=== PATIENT | female | born 1970 | race Two or more races ===

== ENCOUNTER → 2016-12-22 | Outpatient (CLI) | payer OTHER ==
--- NOTE | ~2016-12-22 | US78 ---
[facility] A Service of [facility] & [facility] RADIOLOGY TEXT RESULTS PATIENT: DG MARTINEZ LOCATION: CNIV : 66 UNIT #: [id number] AGE: [address]: AWA TRAN MD SEX: F ORDER DR: [id number] [facility] [address] [place], [place] [address] [id number] O MR#: [id number] Acc #: [id number] NAME: DG MARTINEZ : 1970 SEX: F STUDY DATE/TIME: 12/22/2016 11:50 UNIT: CNIV ROOM: STUDY DESCRIPTION: US Kidney Duplex Complete Attending Physician: Awa Tran M.D. Referring Physician: Awa Tran M.D. Ordering Physician: Awa Tran M.D. Primary Care Physician: Awa Tran M.D. MEDICAL IMAGING REPORT This report is preliminary unless electronic signature is present REVISED REPORT SEE ADDENDUM EXAM Renal artery Doppler ultrasound. Date: 12/22/2016 HISTORY Physician's order states congenital malformation of the kidney. Patient states hypertension for 25 years. 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 COMPARISON Bilateral renal ultrasound 12/22/2016. No prior renal artery Doppler or angiography study for comparison at this institution. FINDINGS Please refer to the bilateral renal ultrasound report from the same day for renal parenchymal findings. Right intrarenal resistive indices vary between 0.55 to 0.65. Right renal vein is patent. Right renal artery peak systolic velocity proximal segment 109 cm/sec, mid segment 95.8 cm/sec, distal segment 96.5 cm/sec. Normal spectral Doppler waveforms are demonstrated. Juxtarenal abdominal aortic peak systolic velocity is 147.1 cm/sec. Left intrarenal resistive indices vary between 0.63 to 0.66. Left renal vein is patent. Left renal artery peak systolic velocity proximal segment 178.1 cm/sec, mid segment 132.8 cm/sec, distal segment 91.5 cm/sec. STS. [facility] A Service of [facility] & [facility] RADIOLOGY TEXT RESULTS PATIENT: DG MARTINEZ LOCATION: PAULY : 66 UNIT #: [id number] AGE: [address]: AWA TRAN MD SEX: F ORDER DR: Normal spectral Doppler waveform is demonstrated. Right renal artery to aortic ratio 0.7. Left renal artery to aortic ratio 1.2. Dictated by... Kimberly Dacosta M.D. THIS IS AN ELECTRONICALLY VERIFIED REPORT Kimberly Dacosta M.D. at 12/25/2016 7:13 AM Ant TD: 12/23/2016 09:27 JOB #: [id number] ADDENDUM IMPRESSION No hemodynamically significant stenosis is seen by sonographic criteria. No sonographic evidence of renal artery stenosis. If more definitive evaluation is desired, dedicated CT angiography of the renal arteries could be performed. Dictated by... Kimberly Dacosta M.D. THIS IS AN ELECTRONICALLY VERIFIED REPORT Kimberly Dacosta M.D. at 12/28/2016 8:33 AM Magi TD: 12/23/2016 09:31 JOB #: [id number] CC: [email or web address] Please Delete MEDICAL IMAGING REPORT Page 1 of 1 COPY
--- NOTE | ~2016-12-22 | US77 ---
[facility] A Service of [facility] & [facility] RADIOLOGY TEXT RESULTS PATIENT: DG MARTINEZ LOCATION: CNIV : 66 UNIT #: [id number] AGE: [address]: AWA TRAN MD SEX: F ORDER DR: [id number] [facility] [address] [place], [place] [address] [id number] O MR#: [id number] Acc #: [id number] NAME: DG MARTINEZ : 1970 SEX: F STUDY DATE/TIME: 12/22/2016 12:22 UNIT: CNIV ROOM: STUDY DESCRIPTION: US Kidney Bilateral Complete Attending Physician: Awa Tran M.D. Referring Physician: Awa Tran M.D. Ordering Physician: Awa Tran M.D. Primary Care Physician: Awa Tran M.D. MEDICAL IMAGING REPORT This report is preliminary unless electronic signature is present EXAM Bilateral renal ultrasound. DATE 12/22/2016 HISTORY Congenital malformation of the left kidney. 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 BUN 11. Creatinine 0.6. GFR 114. COMPARISON None FINDINGS The left kidney measures 13.8 x 5.3 x 5.8 cm. A 1.7 cm shadowing stone is seen within the left lower renal pole. There does appear be an adjacent stone in the left lower renal pole measuring 1.1 cm, and a suspected stone in the left upper renal pole measuring 7 mm. There is mild left hydronephrosis. Normal left renal cortical thickness and echotexture without dominant cystic or solid mass lesion. Right kidney measures 13.7 x 5.1 x 6.0 cm without cystic or solid lesion. No shadowing right renal stone or hydronephrosis is identified. Incidental note is made of a hypoechoic lesion within the pelvis posterior to the urinary bladder, which appears predominately solid and appears to originate from the uterus, thought to represent a subserosal fibroid, measuring about 6.5 x 6.2 x 6.1 cm. IMPRESSION 1. Mild left hydronephrosis. 2. Multiple nonobstructing left renal stones, the dominant in the lower pole measuring 1.7 cm. [facility]. [facility] A Service of [facility] RADIOLOGY TEXT RESULTS PATIENT: DG MARTINEZ LOCATION: CNIV : [birth year] UNIT #: [id number] AGE: [address]: AWA TRAN MD SEX: F ORDER DR: 3. Normal sonographic appearance of the right kidney. 4. Suspected subserosal uterine fibroid measuring up to 6.5 cm. This could be further evaluated with pelvic ultrasound if deemed clinically appropriate. Dictated by... Kimberly Dacosta M.D. THIS IS AN ELECTRONICALLY VERIFIED REPORT Kimberly Dacosta M.D. at 12/23/2016 9:41 AM JAIR/karen TD: 12/22/2016 16:24 JOB #: [id number] MEDICAL IMAGING REPORT Page 1 of 1 COPY
== END | disposition home or self-care (01) ==
LOC: CNIV 12-17 09:00
DX: Q63.9 Congenital malformation of kidney, unspecified (principal); N13.30 Unspecified hydronephrosis; N20.0 Calculus of kidney
CPT/HCPCS: 76770; 93975